=== PATIENT | male | born 2000 | race Hispanic/Latino ===

== ENCOUNTER 2021-07-10 00:43 | Emergency (ER) | payer SELFPAY ==
[2021-07-10] MEDS ORDERED: Boostrix 0.5 ML (Tdap) VIAL ONE (01:32)
== END 2021-07-10 03:02 | disposition home or self-care (01) ==
LOC: ERS 00:43
DX: S91.311A Laceration without foreign body, right foot, initial encounter (principal); W34.00XA Accidental discharge from unspecified firearms or gun, initial encounter; Z23 Encounter for immunization
CPT/HCPCS: 90471; 90715